=== PATIENT | male | born 1980 | race Hispanic/Latino ===

== ENCOUNTER 2021-08-28 14:58 | Outpatient (CLI) | payer OTHER | END 2021-08-28 14:59 | disposition home or self-care (01) | LOC: RAD-FRANK 14:58 | PROVIDERS: ATTEND Nurse Practitioner Family | DX: M25.472 Effusion, left ankle (principal); M79.672 Pain in left foot; S82.432A Displaced oblique fracture of shaft of left fibula, initial encounter for closed fracture ==

== ENCOUNTER 2021-09-05 11:51 | Outpatient (CLI) | payer SELFPAY | END 2021-09-05 11:52 | disposition home or self-care (01) | LOC: LABBT 11:51 | PROVIDERS: ATTEND Orthopaedic Surgery | DX: Z20.822 Contact with and (suspected) exposure to COVID-19 (principal) | CPT/HCPCS: 87811 ==

== ENCOUNTER 2021-09-06 12:24 | Day surgery (SDC) | payer OTHER ==
[2021-09-05 14:16] VITALS: BMI 25.8
[2021-09-06] MEDS ORDERED: Fentanyl 100 MCG/2 ML VIAL ONE ×2 (12:55→14:28)
[2021-09-06] MEDS ORDERED: Midazolam HCl 2 mg/2 ml Vial ONE ×2 (12:55→14:28)
[2021-09-06] MEDS ORDERED: Sodium Chloride 0.9% 100 ML ONE (14:16)
[2021-09-06] MEDS ORDERED: CEFAZOLIN 2 GM VIAL ONE (14:16)
[2021-09-06] MEDS ORDERED: fentaNYL Citrate/PF 100 MCG/2 ML SYRINGE ONE (14:24)
[2021-09-06] MEDS ORDERED: Dexamethasone 20 MG/5 ML VIAL ONE (14:29)
[2021-09-06] MEDS ORDERED: Ondansetron PF 4 MG/2 ML Vial ONE (14:29)
[2021-09-06] MEDS ORDERED: Bupivacaine HCl 0.5%/Epinephrine 1:200,000/PF 30 ml Vial ONE (14:29)
[2021-09-06] MEDS ORDERED: PROPOFOL 200 MG/20 ML VIAL ONE (14:29)
[2021-09-06] MEDS ORDERED: ePHEDrine 50 MG/ML VIAL ONE ×2 (14:29)
[2021-09-06] MEDS ORDERED: Lidocaine 1% PF 5 ML VIAL ONE (14:29)
[2021-09-06] MEDS ORDERED: Ketorolac Tromethamine 30 MG/ML VIAL ONE (14:29)
[2021-09-06] MEDS ORDERED: Meperidine HCl/PF 25 MG/ML VIAL ONE (15:57)
== END 2021-09-06 17:30 | disposition home or self-care (01) ==
LOC: SDC 12:24
PROVIDERS: ATTEND Orthopaedic Surgery
PROC: 3E0T3BZ Introduction of Anesthetic Agent into Peripheral Nerves and Plexi, Percutaneous Approach (ICD-10-PCS; principal; 2021-09-06)
PROC: 0QSK04Z Reposition Left Fibula with Internal Fixation Device, Open Approach (ICD-10-PCS; principal; 2021-09-06)
DX: S82.62XA Displaced fracture of lateral malleolus of left fibula, initial encounter for closed fracture (principal); X50.1XXA Overexertion from prolonged static or awkward postures, initial encounter
CPT/HCPCS: 76000; C1713; J0690; J1100; J1885; J2175; J2250; J2405; J2704; J3010; J3490